=== PATIENT | female | born 1975 | race Caucasian/White ===

== ENCOUNTER 2016-05-30 08:47 | Day surgery (SDC) | payer OTHER ==
[~2016-05-30] VITALS: Ht 170.2 cm; Wt 72.5 kg
[~2016-05-30 08:47] MED LIST: 0.9% Sodium Chloride 1,000 ML IV PRN; MESA800T PO; Sodium Chloride LOK Flush 10 mL Syringe IV PRN; fentaNYL-PF 50 mCg/mL 2 mL Inj IVPUSH PRN
[2016-05-30] MEDS ORDERED: SERT25TA2 PO (09:24)
[2016-05-30 09:38] VITALS: BP 111/74; PULSE 59; RESP 14; O2SAT 100
[2016-05-30 11:00] VITALS: BP 93/61; PULSE 67; RESP 12; O2SAT 99
[2016-05-30 11:12] VITALS: BP 88/55; PULSE 52; RESP 12; O2SAT 99
[2016-05-30 11:22] VITALS: BP 97/72; PULSE 67; RESP 12; O2SAT 100
--- NOTE | 2016-05-30 12:06 | PCM.ENDCOL ---
Colonoscopy Date of Service: May 30, 2016 Physician Brady Rueda MD Pre Procedure Diagnosis: Ulcerative colitis Post Procedure Dx & Findings: Inflammatory polyp diverticuli hemorrhoids Procedure Colonoscopy PROCEDURE IN DETAIL: Prep adequate Withdrawal time 12 minutes After unremarkable rectal examination the Olympus video colonoscope was inserted patient's anal canal and was advanced to cecum. Landmarks were identified including the ileocecal valve and appendiceal orifice. Scope was withdrawn systematically. Visualized colonic mucosa showed healthy shiny mucosa with normal healthy-appearing vasculature. Scope further advanced to the terminal ileum which showed normal villous structures without ulcer or mass erosions. I advanced 10 cm. Starting at the transverse colon to the cecum, there was no evidence of quiescent colitis or isolated colitis patches. In the sigmoid colon at 30 cm from the anal verge, there was a 8 mm polypoid lesion. On the way in, we identified this and it looked irritated and friable. On the way back, we took a biopsy forcep and as we positioned to obtain the tissue sample, I noticed a piece of tissue that was almost broken apart. We grabbed this in the tissue just broke completely apart. In the sigmoid colon there were a few small diverticuli. In the rectum retroflexion was done which showed hemorrhoids. Anal canal was inspected carefully on the way out and hemorrhoids noted. Impression History of left-sided colitis. Subsequently 15 years since the onset of the symptoms based on AGA and ASGE guidelines. However if patient has PSC or develops pancolitis start having yearly screening colonoscopy Hemorrhoids Inflammatory polyp Recommendation See above. Await Biopsy Diverticular diet Presedation Assessment Risks and Benefits Informed consent was obtained from the patient after all risks and benefits including but not limited to drug reaction, infection, pain, bleeding, perforation, as well as alternatives were discussed. Patient monitoring Continuous pulse oximetry, cardiac monitoring, blood pressure monitoring, IV access, and oxygen at 2L per nasal cannula. Periprocedural Fentanyl: Fentanyl 150mcg Incrementally Midazolam: Midazolam 6mg Incrementally Complications There were no periprocedural complications identified. Post Procedure Plan Post Procedure Recommendations 1. Restrict activities today. 2. Resume normal activities in the morning. 3. Resume medications. 4. Patient informed of normal post procedure side effects as bloating, drowsiness, blood streaking in the stool. 5. average risk CRCS. If colon polyps come back as: -Hyperplastic- can repeat colonoscopy in 10 years -Tubular adenoma- repeat colonoscopy in 5 years -Tubulovillous/villous adenoma- repeat colonoscopy in 3 years -If any dysplasia- return to clinic as soon as possible 6. Please don't hesitate to call me with any questions. Brady Rueda MD May 30, 2016 12:06
--- NOTE | 2016-05-31 14:09 | PATH ---
SURGICAL PATHOLOGY Attending Physician:Brady Rueda M.D. CASE STATUS: Signed Out PATIENT NAME: LANETTE AGUILA PID: [id number] : 1975 DATE COLLECTED:05/30/2016 21:49 SPECIMEN: Colon, Biopsy CLINICAL HISTORY: 1). POLYP AT 30CM FINAL DIAGNOSIS: 1.POLYP AT 30 CM: GRANULATION TISSUE POLYP. NEGATIVE FOR DYSPLASIA AND MALIGNANCY. ICD10 CODE K63.5 GROSS DESCRIPTION: The specimen is received in one formalin filled container labeled with the patient's name, sublabeled "polyp at 30 CM" and consists of a 0.2 x 0.2 x 0.2 CM portion of tissue which is entirely submitted in one cassette. 05/30/2016 DAC MICRO DESCRIPTION: See diagnosis. ICD-9 CODES: CPT CODES: 1: 77330 Electronically Signed Out Leslie Lara MD [facility] Pathology [facility] [address], [place] [address] Technical component performed at [facility], [address] [place] [address] Ave[address], [place], [address]
== END 2016-05-30 23:59 | disposition home or self-care (01) ==
LOC: END 08:47
PROVIDERS: ATTEND Internal Medicine
DX: K51.50 Left sided colitis without complications (principal); K63.5 Polyp of colon; K64.8 Other hemorrhoids
CPT/HCPCS: 45380; 88305; 99153; G0500; J2250; J3010; J7030